=== PATIENT | male | born 1975 | race Caucasian/White ===

== ENCOUNTER 2023-09-21 11:10 | Emergency (ER) | payer OTHER ==
[2023-09-21] MEDS ORDERED: Lidocaine 2% 20 ML MDV INFILT ONE (11:11)
== END 2023-09-21 13:25 | disposition home or self-care (01) ==
LOC: FB.ED 11:10
DX: S61.214A Laceration without foreign body of right ring finger without damage to nail, initial encounter (principal); S61.212A Laceration without foreign body of right middle finger without damage to nail, initial encounter; W23.1XXA Caught, crushed, jammed, or pinched between stationary objects, initial encounter
CPT/HCPCS: 12002; 73130-RT; 99283